=== PATIENT | female | born 1975 | race Caucasian/White ===

== ENCOUNTER 2023-05-14 19:43 | Emergency (ER) | payer MEDICAID, SELFPAY ==
[2023-05-14 19:54] VITALS: BP 158/90; PULSE 119; RESP 16; TEMP 36.9; O2SAT 100; BMI 27.3
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
[2023-05-14] MEDS: HYDROcodone-acetaminophen 7.5-325 mg Tablet 1 TAB PO (21:32)
--- NOTE | 2023-05-17 09:52 | PC.SOCIAL ---
Addendum entered by Brigette Hernandez 05/26/23 15:01: route manager received the following message from the ortho clinic regarding follow up appointment: attempt made to contact patient - number states not accepting msgs right now - will mail letter to call our clinic to schedule w/ aleks dickerson (corinne supervising) Original Note: Ortho Referral Referral to ortho at this time. Clinic to contact patient with appt date/time.
== END 2023-05-14 22:00 | disposition home or self-care (01) ==
PROVIDERS: Emergency Provider Physician Assistant
DX: S49.91XA Unspecified injury of right shoulder and upper arm, initial encounter (principal); X50.9XXA Other and unspecified overexertion or strenuous movements or postures, initial encounter
CPT/HCPCS: 73030; 73080; 99283